=== PATIENT | male | born 1950 | race Asian ===

== ENCOUNTER 2018-12-10 20:32 | Inpatient (IN) | payer BC, OTHER ==
[~2018-12-10] VITALS: Ht 170.2 cm; Wt 94.1 kg
[2018-12-10 22:56] LABS: UA SPECIFIC GRAVITY 1.025 (1.005-1.035); microscopic required? YES; urine erythrocyte 1+ (NEGATIVE)
[2018-12-10 22:58] LABS: BASOPHIL % 0.5 % (0-2); PLATELET COUNT 212 x10^3mcL (130-400)
[2018-12-10 23:04] LABS: CALCIUM 8.5 mg/dL (8.5-10.1); CARBON DIOXIDE 22.3 mmol/L (21-32); CHLORIDE SERUM 102 mmol/L (98-107); CREATININE SERUM 1.3 mg/dL (0.7-1.3); GFR1 58 mL/min; GLUCOSE SERUM 160 mg/dL (74-106); POTASSIUM SERUM 3.9 mmol/L (3.5-5.1); SODIUM SERUM 137 mmol/L (136-145)
[2018-12-10 23:06] LABS: RED CELL DISTRIBUTION WIDTH 15.2 % (11.5-14.5)
[2018-12-10 23:08] LABS: ALKALINE PHOSPHATASE 77 U/L (46-116); ALT/SGPT 66 U/L (16-63); AST/SGOT 48 U/L (15-37); BILIRUBIN TOTAL 1.81 mg/dL (0.20-1.00); LIPASE 148 IU/L (73-393); TOTAL PROTEIN, SERUM 7.1 g/dL (6.4-8.2)
[2018-12-10 23:10] LABS: ALBUMIN 3.3 g/dL (3.4-5.0)
[2018-12-11] MEDS ORDERED: TOPROL XL25 MG PO (01:06)
[2018-12-11] MEDS ORDERED: PREDNISONE20 MG PO (01:06)
[2018-12-11] MEDS ORDERED: ALLOPURINOL100 MG PO (01:07)
[2018-12-11] MEDS ORDERED: LIPI10 PO (01:07)
[2018-12-11] MEDS ORDERED: ELIQUIS5 MG PO (01:08)
[2018-12-11] MEDS ORDERED: LOTREL1 CA3 PO (01:08)
[2018-12-11 01:21] LABS: MAGNESIUM 1.7 mg/dL (1.8-2.4); PHOSPHOROUS 3.4 mg/dL (2.5-4.9)
[2018-12-11 01:28] VITALS: BP 124/65
[2018-12-11 01:33] LABS: FREE T4 1.2 ng/dL (0.76-1.46); FREE THYROXINE INDEX 3.2 ug/dL (1.4-4.5); T4(THYROXINE) 8.3 ug/dL (4.7-13.3)
[2018-12-11 02:29] LABS: T3 TOTAL 1.21 ng/mL
[2018-12-11 04:02] VITALS: BP 128/70
[2018-12-11 07:11] LABS: CALCIUM 8.5 mg/dL (8.5-10.1); CARBON DIOXIDE 21.8 mmol/L (21-32); CREATININE SERUM 1.3 mg/dL (0.7-1.3); MAGNESIUM 1.8 mg/dL (1.8-2.4); PHOSPHOROUS 3.3 mg/dL (2.5-4.9); POTASSIUM SERUM 3.8 mmol/L (3.5-5.1)
[2018-12-11 07:21] LABS: BASOPHIL % 0.7 % (0-2); PLATELET COUNT 194 x10^3mcL (130-400)
[2018-12-11 08:40] VITALS: BP 125/65
[2018-12-11 12:20] VITALS: BP 145/79
[2018-12-11 16:45] VITALS: BP 150/71
[2018-12-11 20:31] VITALS: BP 134/66
[2018-12-12 05:51] VITALS: BP 106/67
[2018-12-12 07:32] LABS: BASOPHIL % 0.3 % (0-2); PLATELET COUNT 179 x10^3mcL (130-400)
[2018-12-12 07:34] LABS: RED CELL DISTRIBUTION WIDTH 15.3 % (11.5-14.5)
[2018-12-12 07:51] LABS: CALCIUM 7.8 mg/dL (8.5-10.1); CARBON DIOXIDE 23.1 mmol/L (21-32); CREATININE SERUM 1.4 mg/dL (0.7-1.3)
[2018-12-12 08:39] VITALS: BP 104/52
[2018-12-12 12:32] VITALS: BP 124/61
[2018-12-12 16:18] VITALS: BP 124/62
[2018-12-12 18:06] VITALS: Ht 170.2 cm; Wt 94.1 kg
[2018-12-12 20:11] VITALS: BP 138/59
[2018-12-13 05:33] VITALS: BP 122/68
[2018-12-13 07:20] LABS: CALCIUM 8.1 mg/dL (8.5-10.1); CARBON DIOXIDE 21.8 mmol/L (21-32); CREATININE SERUM 1.5 mg/dL (0.7-1.3); POTASSIUM SERUM 3.8 mmol/L (3.5-5.1)
[2018-12-13 08:28] LABS: BASOPHIL % 0 % (0-2); PLATELET COUNT 208 x10^3mcL (130-400); RED CELL DISTRIBUTION WIDTH 15.3 % (11.5-14.5)
[2018-12-13 09:27] VITALS: BP 142/76
[2018-12-13 13:34] VITALS: BP 131/62
[2018-12-13 18:16] VITALS: BP 122/64
[2018-12-13 20:51] VITALS: BP 102/72
[2018-12-14 05:42] VITALS: BP 128/72
[2018-12-14 06:37] LABS: PLATELET COUNT 233 x10^3mcL (130-400)
[2018-12-14 06:39] LABS: BASOPHIL % 0 % (0-2); RED CELL DISTRIBUTION WIDTH 15.1 % (11.5-14.5)
[2018-12-14 06:55] LABS: CALCIUM 7.9 mg/dL (8.5-10.1); CARBON DIOXIDE 23.5 mmol/L (21-32); CREATININE SERUM 1.4 mg/dL (0.7-1.3)
[2018-12-14 08:25] VITALS: BP 126/65
[2018-12-14 12:00] VITALS: BP 119/62
[2018-12-14 17:00] VITALS: BP 132/68
[2018-12-14 20:14] VITALS: BP 126/69
[2018-12-15 05:28] VITALS: BP 129/70
[2018-12-15 05:39] LABS: BASOPHIL % 0.2 % (0-2); PLATELET COUNT 236 x10^3mcL (130-400)
[2018-12-15 05:52] LABS: RED CELL DISTRIBUTION WIDTH 15.6 % (11.5-14.5)
[2018-12-15 05:53] LABS: CALCIUM 8.2 mg/dL (8.5-10.1); CARBON DIOXIDE 26.2 mmol/L (21-32); CREATININE SERUM 1.4 mg/dL (0.7-1.3); POTASSIUM SERUM 3.8 mmol/L (3.5-5.1)
[2018-12-15 09:17] VITALS: BP 128/62
[2018-12-15 12:40] VITALS: BP 127/68
[2018-12-15 17:31] VITALS: BP 130/63
[2018-12-15 21:10] VITALS: BP 128/69
[2018-12-16 05:14] VITALS: BP 130/70
[2018-12-16 05:56] LABS: BASOPHIL % 0 % (0-2); PLATELET COUNT 258 x10^3mcL (130-400); RED CELL DISTRIBUTION WIDTH 15.4 % (11.5-14.5)
[2018-12-16 06:13] LABS: CALCIUM 8.4 mg/dL (8.5-10.1); CARBON DIOXIDE 27.8 mmol/L (21-32); CREATININE SERUM 1.3 mg/dL (0.7-1.3)
[2018-12-16 09:55] VITALS: BP 117/57
[2018-12-16 14:00] VITALS: BP 128/58
[2018-12-16 16:30] VITALS: BP 141/66
[2018-12-16 20:58] VITALS: BP 131/71
[2018-12-17 05:45] VITALS: BP 143/70
[2018-12-17 07:59] LABS: BASOPHIL % 0.1 % (0-2); PLATELET COUNT 284 x10^3mcL (130-400)
[2018-12-17 08:00] LABS: RED CELL DISTRIBUTION WIDTH 15.2 % (11.5-14.5)
[2018-12-17 08:11] LABS: CALCIUM 8.5 mg/dL (8.5-10.1); CARBON DIOXIDE 27.2 mmol/L (21-32); CREATININE SERUM 1.3 mg/dL (0.7-1.3)
[2018-12-17 09:05] VITALS: BP 134/69
[2018-12-17 12:50] VITALS: BP 109/47
[2018-12-17 16:50] VITALS: BP 128/63
[2018-12-17 21:09] VITALS: BP 133/66
[2018-12-18 05:58] VITALS: BP 135/76
[2018-12-18 06:16] LABS: PLATELET COUNT 301 x10^3mcL (130-400)
[2018-12-18 06:29] LABS: CALCIUM 8.7 mg/dL (8.5-10.1); CARBON DIOXIDE 28.4 mmol/L (21-32); CREATININE SERUM 1.3 mg/dL (0.7-1.3); POTASSIUM SERUM 4.2 mmol/L (3.5-5.1)
[2018-12-18 06:41] LABS: BASOPHIL % 0 % (0-2); RED CELL DISTRIBUTION WIDTH 15.5 % (11.5-14.5)
[2018-12-18 08:37] VITALS: BP 127/65
[2018-12-18 08:50] VITALS: BP 127/65
[2018-12-18 11:48] VITALS: BP 125/67
[2018-12-18 16:59] VITALS: BP 115/62
[2018-12-18 21:47] VITALS: BP 115/61
[2018-12-19 05:56] VITALS: BP 128/76
[2018-12-19 06:57] LABS: CALCIUM 8.7 mg/dL (8.5-10.1); CARBON DIOXIDE 28.4 mmol/L (21-32); CREATININE SERUM 1.4 mg/dL (0.7-1.3); POTASSIUM SERUM 4.6 mmol/L (3.5-5.1)
[2018-12-19 07:19] LABS: BASOPHIL % 0 % (0-2); PLATELET COUNT 293 x10^3mcL (130-400); RED CELL DISTRIBUTION WIDTH 15.8 % (11.5-14.5)
[2018-12-19 08:30] VITALS: BP 115/53
[2018-12-19 12:15] VITALS: BP 118/63
[2018-12-19 17:31] VITALS: BP 110/54
[2018-12-19 20:25] VITALS: BP 104/53
[2018-12-20 05:47] VITALS: BP 116/62
[2018-12-20 08:21] LABS: PLATELET COUNT 288 x10^3mcL (130-400)
[2018-12-20 09:00] VITALS: BP 116/56
[2018-12-20 09:04] LABS: CALCIUM 8.6 mg/dL (8.5-10.1); CARBON DIOXIDE 21.7 mmol/L (21-32); CREATININE SERUM 1.5 mg/dL (0.7-1.3); POTASSIUM SERUM 4.4 mmol/L (3.5-5.1)
[2018-12-20 10:43] LABS: BAND NEUTROPHIL 2 % (0-10); BASOPHIL 0 % (0-2); MONOCYTE 1 % (0-7); SEGMENTED NEUTROPHILS 93 % (37-75)
[2018-12-20 10:44] LABS: PLATELET MORPHOLOGY PLATELETS NORMAL; rbc morphology (normal/abnorm) ABNORMAL (NORMAL); tear drop cell (dacryocyte) 1+
[2018-12-20 12:31] VITALS: BP 129/72
[2018-12-20 17:00] VITALS: BP 118/59
[2018-12-20 20:36] VITALS: BP 123/59
[2018-12-21 06:12] LABS: BASOPHIL % 0.1 % (0-2); PLATELET COUNT 251 x10^3mcL (130-400)
[2018-12-21 06:25] VITALS: BP 124/67
[2018-12-21 06:41] LABS: CALCIUM 8.1 mg/dL (8.5-10.1); CARBON DIOXIDE 25.2 mmol/L (21-32); CREATININE SERUM 1.4 mg/dL (0.7-1.3); POTASSIUM SERUM 3.9 mmol/L (3.5-5.1)
[2018-12-21 06:45] LABS: RED CELL DISTRIBUTION WIDTH 15.3 % (11.5-14.5)
[2018-12-21 09:07] VITALS: BP 105/51
[2018-12-21 11:32] VITALS: BP 125/62
[2018-12-21 17:01] VITALS: BP 122/59
[2018-12-21 21:36] VITALS: BP 117/59
[2018-12-22 05:39] VITALS: BP 127/74
[2018-12-22 06:29] LABS: BASOPHIL % 0.1 % (0-2); PLATELET COUNT 225 x10^3mcL (130-400)
[2018-12-22 06:47] LABS: RED CELL DISTRIBUTION WIDTH 15.5 % (11.5-14.5)
[2018-12-22 07:30] LABS: CALCIUM 8.3 mg/dL (8.5-10.1); CARBON DIOXIDE 26.4 mmol/L (21-32); CREATININE SERUM 1.3 mg/dL (0.7-1.3); POTASSIUM SERUM 3.8 mmol/L (3.5-5.1)
[2018-12-22 08:53] VITALS: BP 114/59; BP 114/89
[2018-12-22 12:30] VITALS: BP 116/65
[2018-12-22 16:13] VITALS: BP 120/58
[2018-12-22 16:56] VITALS: BP 120/58
[2018-12-22 21:20] VITALS: BP 106/55
[2018-12-23 05:12] VITALS: BP 130/71
[2018-12-23 07:15] LABS: BASOPHIL % 0.2 % (0-2); PLATELET COUNT 194 x10^3mcL (130-400)
[2018-12-23 07:38] LABS: CARBON DIOXIDE 26.4 mmol/L (21-32); CHLORIDE SERUM 106 mmol/L (98-107); CREATININE SERUM 1.2 mg/dL (0.7-1.3); GFR1 > 60 mL/min; GLUCOSE SERUM 103 mg/dL (74-106); MAGNESIUM 2.4 mg/dL (1.8-2.4); PHOSPHOROUS 3.6 mg/dL (2.5-4.9); POTASSIUM SERUM 3.8 mmol/L (3.5-5.1); SODIUM SERUM 142 mmol/L (136-145)
[2018-12-23 07:52] LABS: RED CELL DISTRIBUTION WIDTH 15.6 % (11.5-14.5)
[2018-12-23 09:06] VITALS: BP 102/59
[2018-12-23 13:19] VITALS: BP 105/62
[2018-12-23 18:30] VITALS: BP 111/58
[2018-12-23 21:48] VITALS: BP 116/56
[2018-12-24 05:48] VITALS: BP 122/64
[2018-12-24 07:05] LABS: CALCIUM 8.3 mg/dL (8.5-10.1); CARBON DIOXIDE 23.4 mmol/L (21-32); CHLORIDE SERUM 103 mmol/L (98-107); CREATININE SERUM 1.2 mg/dL (0.7-1.3); GFR1 > 60 mL/min; GLUCOSE SERUM 95 mg/dL (74-106); MAGNESIUM 2.3 mg/dL (1.8-2.4); PHOSPHOROUS 3.4 mg/dL (2.5-4.9); POTASSIUM SERUM 3.8 mmol/L (3.5-5.1); SODIUM SERUM 139 mmol/L (136-145)
[2018-12-24 07:16] LABS: BASOPHIL % 0.1 % (0-2); PLATELET COUNT 173 x10^3mcL (130-400)
[2018-12-24 07:33] LABS: RED CELL DISTRIBUTION WIDTH 15.6 % (11.5-14.5)
[2018-12-24 07:49] VITALS: BP 121/79
[2018-12-24 09:10] VITALS: BP 110/56
[2018-12-24 12:58] VITALS: BP 101/54
[2018-12-24 17:37] VITALS: BP 102/63
[2018-12-24 20:37] VITALS: BP 98/56
[2018-12-25 05:23] VITALS: BP 119/69
[2018-12-25 07:18] LABS: PLATELET COUNT 183 x10^3mcL (130-400)
[2018-12-25 07:44] LABS: RED CELL DISTRIBUTION WIDTH 15.9 % (11.5-14.5)
[2018-12-25 08:00] LABS: CALCIUM 8.5 mg/dL (8.5-10.1); CARBON DIOXIDE 25.8 mmol/L (21-32); CREATININE SERUM 1.3 mg/dL (0.7-1.3); POTASSIUM SERUM 3.9 mmol/L (3.5-5.1)
[2018-12-25 10:16] VITALS: BP 103/53
[2018-12-25 12:00] LABS: BAND NEUTROPHIL 0 % (0-10); BASOPHIL 0 % (0-2); MONOCYTE 2 % (0-7); SEGMENTED NEUTROPHILS 89 % (37-75)
[2018-12-25 12:03] LABS: PLATELET MORPHOLOGY PLATELETS DECREASED; rbc morphology (normal/abnorm) ABNORMAL (NORMAL)
[2018-12-25 17:22] VITALS: BP 148/85
[2018-12-25 21:52] VITALS: BP 112/57
[2018-12-26 05:35] VITALS: BP 116/72
[2018-12-26 06:59] LABS: BASOPHIL % 0.5 % (0-2); PLATELET COUNT 153 x10^3mcL (130-400)
[2018-12-26 07:15] LABS: RED CELL DISTRIBUTION WIDTH 15.5 % (11.5-14.5)
[2018-12-26 07:18] LABS: CALCIUM 8.6 mg/dL (8.5-10.1); CARBON DIOXIDE 25.4 mmol/L (21-32); CREATININE SERUM 1.3 mg/dL (0.7-1.3); POTASSIUM SERUM 4.2 mmol/L (3.5-5.1)
[2018-12-26 10:10] VITALS: BP 111/67
[2018-12-26 14:28] VITALS: BP 122/69
[2018-12-26 16:14] VITALS: BP 120/64
[2018-12-26 16:46] VITALS: BP 120/64
[2018-12-26 16:51] VITALS: BP 120/64
== END 2018-12-26 17:38 | disposition home or self-care (01) | DRG 280 ==
LOC: ED 20:32 → DU 23:55
PROVIDERS: Emergency Medicine; Family Medicine; General Practice; ADMIT Internal Medicine
PROC: 5A09357 Assistance with Respiratory Ventilation, Less than 24 Consecutive Hours, Continuous Positive Airway Pressure (ICD-10-PCS; principal; 2018-12-18)
DX: I21.4 Non-ST elevation (NSTEMI) myocardial infarction (principal); N17.0 Acute kidney failure with tubular necrosis; J69.0 Pneumonitis due to inhalation of food and vomit; E44.1 Mild protein-calorie malnutrition; N39.0 Urinary tract infection, site not specified; I50.20 Unspecified systolic (congestive) heart failure; I42.9 Cardiomyopathy, unspecified; K64.8 Other hemorrhoids; I48.2 Chronic atrial fibrillation; E78.5 Hyperlipidemia, unspecified; E86.0 Dehydration; I25.10 Atherosclerotic heart disease of native coronary artery without angina pectoris; I08.3 Combined rheumatic disorders of mitral, aortic and tricuspid valves; G47.33 Obstructive sleep apnea (adult) (pediatric); I11.0 Hypertensive heart disease with heart failure; E11.65 Type 2 diabetes mellitus with hyperglycemia; M10.9 Gout, unspecified; Z68.33 Body mass index [BMI] 33.0-33.9, adult; Z95.810 Presence of automatic (implantable) cardiac defibrillator; Z87.01 Personal history of pneumonia (recurrent); F41.9 Anxiety disorder, unspecified
CPT/HCPCS: 82962; 83880; 84439; 87804; 94150; A9500; J1644; J1650; J1815; J1940; J1956; J2543; J2785; J2920; J3370; J7030; J7050; J7512; J7620; J7626; Q0092

== ENCOUNTER 2020-10-21 14:54 | Inpatient (IN) | payer BC, OTHER, SELFPAY ==
[~2020-10-21] VITALS: Ht 170.2 cm; Wt 102.0 kg
[~2020-10-21 14:54] MED LIST: ALLOPURINOL100 MG PO; ELIQUIS5 MG PO; LIPI10 PO; LOTREL1 CA3 PO; PREDNISONE20 MG PO; TOPROL XL25 MG PO
[2020-10-21 16:07] LABS: BASOPHIL % 0.1 % (0.2-1.5); PLATELET COUNT 192 x10^3mcL (152-348); RED CELL DISTRIBUTION WIDTH 14.2 % (12.1-16.2)
[2020-10-21 16:15] LABS: ALKALINE PHOSPHATASE 116 U/L (46-116); ALT/SGPT 88 U/L (16-63); AST/SGOT 129 U/L (15-37); BILIRUBIN TOTAL 0.8 mg/dL (0.20-1.00); CARBON DIOXIDE 19.1 mmol/L (21-32); CHLORIDE SERUM 99 mmol/L (98-107); CREATININE SERUM 1.9 mg/dL (0.7-1.3); GFR1 37 mL/min; POTASSIUM SERUM 4.3 mmol/L (3.5-5.1); SODIUM SERUM 133 mmol/L (136-145); TOTAL PROTEIN, SERUM 6.6 g/dL (6.4-8.2)
[2020-10-21 16:21] LABS: ALBUMIN 2.7 g/dL (3.4-5.0); LACTIC DEHYDROGENASE (LDH) 817 U/L (100-190)
[2020-10-21 16:46] LABS: CALCIUM 8.4 mg/dL (8.5-10.1); GLUCOSE SERUM 255 mg/dL (74-106)
[2020-10-21 17:06] LABS: C REACTIVE PROTEIN 27.9 mg/dL (<=0.9)
[2020-10-22 11:30] LABS: BILIRUBIN DIRECT 0.42 mg/dL (0.0-0.2); BILIRUBIN TOTAL 0.7 mg/dL (0.20-1.00); CALCIUM 8.4 mg/dL (8.5-10.1); CARBON DIOXIDE 20.7 mmol/L (21-32); CREATININE SERUM 1.6 mg/dL (0.7-1.3); MAGNESIUM 2.7 mg/dL (1.8-2.4); PHOSPHOROUS 5.7 mg/dL (2.5-4.9); POTASSIUM SERUM 4.6 mmol/L (3.5-5.1); TOTAL PROTEIN, SERUM 6.5 g/dL (6.4-8.2)
[2020-10-22 11:31] LABS: BASOPHIL % 0.2 % (0.2-1.5); PLATELET COUNT 210 x10^3mcL (152-348); RED CELL DISTRIBUTION WIDTH 14.1 % (12.1-16.2)
[2020-10-22 11:40] LABS: ALBUMIN 2.5 g/dL (3.4-5.0)
[2020-10-23 05:26] LABS: PLATELET COUNT 309 x10^3mcL (152-348); RED CELL DISTRIBUTION WIDTH 14.3 % (12.1-16.2)
[2020-10-23 05:40] LABS: CALCIUM 7.8 mg/dL (8.5-10.1); CARBON DIOXIDE 19.8 mmol/L (21-32); CREATININE SERUM 2.9 mg/dL (0.7-1.3); MAGNESIUM 3.1 mg/dL (1.8-2.4); PHOSPHOROUS 6.8 mg/dL (2.5-4.9)
[2020-10-23 05:41] LABS: BILIRUBIN DIRECT 0.45 mg/dL (0.0-0.2); BILIRUBIN TOTAL 0.74 mg/dL (0.20-1.00); TOTAL PROTEIN, SERUM 7.3 g/dL (6.4-8.2)
[2020-10-23 05:43] LABS: ALBUMIN 2.6 g/dL (3.4-5.0)
[2020-10-23 05:44] LABS: BAND NEUTROPHIL 5 % (0-10); MONOCYTE 5 % (0-7); SEGMENTED NEUTROPHILS 82 % (37-75); rbc morphology (normal/abnorm) NORMAL (NORMAL)
[2020-10-23 12:30] VITALS: BP 102/52
[2020-10-23 17:53] VITALS: BP 88/48
[2020-10-23 19:09] LABS: UA SPECIFIC GRAVITY 1.025 (1.005-1.035); microscopic required? YES; urine erythrocyte 2+ (NEGATIVE)
[2020-10-23 19:20] LABS: CREATININE UR 81.9 mg/dL
[2020-10-23 21:52] VITALS: BP 104/51
[2020-10-24 01:05] VITALS: BP 109/52
[2020-10-24 03:35] VITALS: BP 109/51
[2020-10-24 06:03] LABS: BASOPHIL % 0.1 % (0.2-1.5); PLATELET COUNT 276 x10^3mcL (152-348); RED CELL DISTRIBUTION WIDTH 14.4 % (12.1-16.2)
[2020-10-24 06:57] LABS: BILIRUBIN DIRECT 0.34 mg/dL (0.0-0.2); BILIRUBIN TOTAL 0.6 mg/dL (0.20-1.00); CALCIUM 7.3 mg/dL (8.5-10.1); CARBON DIOXIDE 21.9 mmol/L (21-32); CREATININE SERUM 2.5 mg/dL (0.7-1.3); MAGNESIUM 3.5 mg/dL (1.8-2.4); TOTAL PROTEIN, SERUM 6.7 g/dL (6.4-8.2)
[2020-10-24 07:02] LABS: ALBUMIN 2.4 g/dL (3.4-5.0)
[2020-10-24 08:26] VITALS: BP 127/51
[2020-10-24 15:00] VITALS: BP 106/50
[2020-10-24 16:45] VITALS: BP 107/51
[2020-10-24 20:50] VITALS: BP 113/53
[2020-10-25] VITALS (7 sets, daily range): BP systolic 110–119; BP diastolic 47–54
[2020-10-25 11:07] LABS: BASOPHIL % 0.1 % (0.2-1.5); PLATELET COUNT 229 x10^3mcL (152-348)
[2020-10-25 11:16] LABS: CREATININE SERUM 2.3 mg/dL (0.7-1.3)
[2020-10-25 11:21] LABS: RED CELL DISTRIBUTION WIDTH 14.9 % (12.1-16.2)
[2020-10-25 11:22] LABS: CARBON DIOXIDE 21.9 mmol/L (21-32); POTASSIUM SERUM 5.4 mmol/L (3.5-5.1)
[2020-10-25 11:39] LABS: BILIRUBIN DIRECT 0.28 mg/dL (0.0-0.2); BILIRUBIN TOTAL 0.63 mg/dL (0.20-1.00)
[2020-10-25 11:51] LABS: ALBUMIN 2.1 g/dL (3.4-5.0); TOTAL PROTEIN, SERUM 5.7 g/dL (6.4-8.2)
[2020-10-26 01:11] VITALS: BP 115/50
[2020-10-26 06:02] VITALS: BP 121/54
[2020-10-26 07:18] LABS: BASOPHIL % 0.2 % (0.2-1.5); PLATELET COUNT 220 x10^3mcL (152-348)
[2020-10-26 07:48] LABS: CALCIUM 7.3 mg/dL (8.5-10.1); CARBON DIOXIDE 22.7 mmol/L (21-32); CREATININE SERUM 2.1 mg/dL (0.7-1.3); POTASSIUM SERUM 5.4 mmol/L (3.5-5.1)
[2020-10-26 08:20] VITALS: BP 119/56
[2020-10-26 11:00] VITALS: BP 121/55
[2020-10-26 17:05] VITALS: BP 122/56
[2020-10-26 21:02] VITALS: BP 121/47
[2020-10-27 00:59] VITALS: BP 129/61
[2020-10-27 07:28] LABS: CALCIUM 7.7 mg/dL (8.5-10.1); CARBON DIOXIDE 23.2 mmol/L (21-32); CREATININE SERUM 1.7 mg/dL (0.7-1.3); POTASSIUM SERUM 5.3 mmol/L (3.5-5.1)
[2020-10-27 07:55] LABS: BASOPHIL % 0.3 % (0.2-1.5); PLATELET COUNT 143 x10^3mcL (152-348); RED CELL DISTRIBUTION WIDTH 14.4 % (12.1-16.2)
[2020-10-27 10:05] VITALS: BP 114/55
[2020-10-27 17:09] VITALS: BP 117/54
[2020-10-27 22:02] VITALS: BP 121/51
[2020-10-28 02:02] VITALS: BP 121/53
[2020-10-28 07:10] VITALS: BP 155/63
[2020-10-28 07:25] LABS: BASOPHIL % 0.4 % (0.2-1.5); RED CELL DISTRIBUTION WIDTH 14.2 % (12.1-16.2)
[2020-10-28 07:44] LABS: CALCIUM 7.4 mg/dL (8.5-10.1); CARBON DIOXIDE 24.8 mmol/L (21-32); CREATININE SERUM 1.4 mg/dL (0.7-1.3); POTASSIUM SERUM 5.4 mmol/L (3.5-5.1)
[2020-10-28 08:47] LABS: PLATELET COUNT 116 x10^3mcL (152-348)
[2020-10-28 09:05] VITALS: BP 137/59
[2020-10-28 20:28] VITALS: BP 128/56
[2020-10-29] VITALS (8 sets, daily range): BP systolic 104–146; BP diastolic 30–81
[2020-10-30] VITALS (8 sets, daily range): BP systolic 100–116; BP diastolic 28–32
[2020-10-30 08:22] LABS: BASOPHIL % 0.4 % (0.2-1.5); RED CELL DISTRIBUTION WIDTH 14.5 % (12.1-16.2)
[2020-10-30 08:40] LABS: CALCIUM 7.3 mg/dL (8.5-10.1)
[2020-10-30 08:46] LABS: PLATELET COUNT 75 x10^3mcL (152-348)
[2020-10-30 20:06] LABS: CARBON DIOXIDE 20.4 mmol/L (21-32)
[2020-10-30 20:11] LABS: CREATININE SERUM 4.2 mg/dL (0.7-1.3); POTASSIUM SERUM 8.9 mmol/L (3.5-5.1)
[2020-10-30 23:35] LABS: CALCIUM 7.5 mg/dL (8.5-10.1); CARBON DIOXIDE 20.5 mmol/L (21-32)
[2020-10-30 23:38] LABS: POTASSIUM SERUM 8.2 mmol/L (3.5-5.1)
[2020-10-30 23:39] LABS: CREATININE SERUM 5.3 mg/dL (0.7-1.3)
[2020-10-31] VITALS (8 sets, daily range): BP systolic 106–142; BP diastolic 28–73
[2020-10-31 09:34] LABS: CALCIUM 7.2 mg/dL (8.5-10.1); CARBON DIOXIDE 26.6 mmol/L (21-32); POTASSIUM SERUM 5.5 mmol/L (3.5-5.1)
[2020-10-31 10:06] LABS: BASOPHIL % 0.2 % (0.2-1.5)
[2020-10-31 10:09] LABS: CREATININE SERUM 4.1 mg/dL (0.7-1.3)
[2020-10-31 10:10] LABS: RED CELL DISTRIBUTION WIDTH 14.5 % (12.1-16.2)
[2020-10-31 10:59] LABS: PLATELET COUNT 70 x10^3mcL (152-348)
[2020-11-01] VITALS (8 sets, daily range): BP systolic 68–142; BP diastolic 24–36
[2020-11-01 06:37] LABS: PLATELET COUNT 43 x10^3mcL (152-348); RED CELL DISTRIBUTION WIDTH 15.1 % (12.1-16.2)
[2020-11-01 06:48] LABS: BILIRUBIN TOTAL 1.15 mg/dL (0.20-1.00); CALCIUM 6.4 mg/dL (8.5-10.1); CARBON DIOXIDE 18.3 mmol/L (21-32)
[2020-11-01 06:57] LABS: ALBUMIN 1.2 g/dL (3.4-5.0); TOTAL PROTEIN, SERUM 4.1 g/dL (6.4-8.2)
[2020-11-01 06:58] LABS: CREATININE SERUM 5.3 mg/dL (0.7-1.3); POTASSIUM SERUM 7.2 mmol/L (3.5-5.1)
[2020-11-01 10:40] LABS: CALCIUM 6.5 mg/dL (8.5-10.1); CARBON DIOXIDE 12.1 mmol/L (21-32)
[2020-11-01 10:43] LABS: POTASSIUM SERUM 7.1 mmol/L (3.5-5.1)
[2020-11-01 10:44] LABS: CREATININE SERUM 5.4 mg/dL (0.7-1.3)
[2020-11-01 14:57] LABS: BAND NEUTROPHIL 27 % (0-10); METAMYELOCTE 5 % (0-2); MONOCYTE 1 % (0-7); MYELOCYTE 1 % (0-2); SEGMENTED NEUTROPHILS 65 % (37-75)
[2020-11-01 14:58] LABS: rbc morphology (normal/abnorm) ABNORMAL (NORMAL)
[2020-11-01 14:59] LABS: PLATELET MORPHOLOGY PLATELETS DECREASED
== END 2020-11-01 19:58 | DRG 870 ==
LOC: ED 14:54 → IC 17:38
PROVIDERS: Internal Medicine; Student in an Organized Health Care Education/Training Program; ADMIT Internal Medicine; ATTEND Internal Medicine
PROC: XW033E5 Introduction of Remdesivir Anti-infective into Peripheral Vein, Percutaneous Approach, New Technology Group 5 (ICD-10-PCS; 2020-10-22)
PROC: 02HV33Z Insertion of Infusion Device into Superior Vena Cava, Percutaneous Approach (ICD-10-PCS; principal; 2020-10-23)
PROC: B548ZZA Ultrasonography of Superior Vena Cava, Guidance (ICD-10-PCS; 2020-10-23)
PROC: 5A1955Z Respiratory Ventilation, Greater than 96 Consecutive Hours (ICD-10-PCS; 2020-10-26)
PROC: 0BH17EZ Insertion of Endotracheal Airway into Trachea, Via Natural or Artificial Opening (ICD-10-PCS; 2020-10-26)
PROC: 5A1D70Z Performance of Urinary Filtration, Intermittent, Less than 6 Hours Per Day (ICD-10-PCS; 2020-10-31)
DX: A41.89 Other specified sepsis (principal); J96.01 Acute respiratory failure with hypoxia; N17.0 Acute kidney failure with tubular necrosis; I21.A1 Myocardial infarction type 2; R65.21 Severe sepsis with septic shock; U07.1 COVID-19; J12.82 Pneumonia due to coronavirus disease 2019; E87.1 Hypo-osmolality and hyponatremia; I42.9 Cardiomyopathy, unspecified; I50.22 Chronic systolic (congestive) heart failure; I48.20 Chronic atrial fibrillation, unspecified; Z88.8 Allergy status to other drugs, medicaments and biological substances; Z95.0 Presence of cardiac pacemaker; I25.10 Atherosclerotic heart disease of native coronary artery without angina pectoris; I12.9 Hypertensive chronic kidney disease with stage 1 through stage 4 chronic kidney disease, or unspecified chronic kidney disease; N18.9 Chronic kidney disease, unspecified; G47.33 Obstructive sleep apnea (adult) (pediatric)
CPT/HCPCS: 36556; 36600; 82962; 83880; 85378; A4628; G0378; J0171; J0456; J0610; J0696; J1100; J1450; J1642; J1644; J1650; J1815; J1940; J2060; J2250; J2370; J2543; J2920; J3010; J3370; J3490; J7030; J7050; J7060; U0003